=== PATIENT | female | born 1945 | race Caucasian/White ===

== ENCOUNTER 2020-12-16 16:51 | Outpatient (RCR) | payer MEDICARE, SELFPAY ==
[2020-12-16] MEDS: COVID-19 VACC, MRNA(PFIZER)/PF 30 MCG/0.3 ML SYRINGE IM (07:17)
[2021-01-06] MEDS: COVID-19 VACC, MRNA(PFIZER)/PF 30 MCG/0.3 ML SYRINGE IM (06:56)
== END 2021-03-17 23:59 ==
LOC: IMMUN 16:51
PROVIDERS: PCP Family Medicine; Referring Provider Family Medicine; Visit Provider Family Medicine
DX: Z23 Encounter for immunization (principal)
CPT/HCPCS: 0001A; 0002A; 91300

== ENCOUNTER 2021-06-01 09:00 | Outpatient (RCR) | payer MEDICARE, SELFPAY ==
--- NOTE | 2021-04-29 10:36 | HP.PTEVAL ---
Patient's Visit Information JASON LEVINE is a 75 year old F referred to Physical Therapy by Dr. Barney Manning DO with a diagnosis of CHRONIC LINA LOW BACK PAIN WITHOUT SCIATICA. Date of Evaluation: 04/29/21 Physical Therapist: Danyelle Weller PT, Cert MDT - Visit Plan Frequency: 2-3x /Week Duration: 4-6 Weeks Plan: CONSIDER AQUATIC THERAPY. POSTURE CORRECTION/STRENGTHENING, INSTRUCTION IN APPROPRIATE BODY MECHANICS AND ACTIVITY MODIFICATIONS. DLS STARTING WITH A NEUTRAL SPINE PROGRESSING ROM TOLERATED. LINA LE ROM, STRETCHING AND STRENGTHENING. HEP INSTRUCTION. - Subjective Work/Leisure: RETIRED. Disability: NO. Present symptoms: LOW BACK STIFFNESS, LINA HIP PAIN R > L, RIGHT LATERAL THIGH, RIGHT GROIN PAIN. LINA FOOT COLD FEELING. Present since: ABOUT A YEAR. Pain Scale: WORST 5/10, LEAST 0/10. Currently: 0-1/10. Commenced as a result of: NO APPARENT REASON. Symptoms at onset: R HIP PAIN. Worse: WORKING IN GARDEN, GETTING UP AND DOWN, WALKING, STANDING AFTER PROLONGED SITTING, PROLONGED STANDING. LYING ON RIGHT HIP. STIFFNESS IN BACK IN MORNING. Better: RECLINER FOR LESS THAN AN HOUR, STANDING STILL FOR A FEW MINUTES WHILE WALKING. THE DAY PROGRESSES. Disturbed sleep: NO. Previous history/Previous treatment: CHIROPRACTOR A FEW TIMES ABOUT 7 YEARS AGO. NO BACK OR HIP SURGERY OR INJECTIONS. NO PT. Coughing/sneezing/straining: NEGATIVE. Gait: TIME AND DISTANCE LIMITED. MY STRIDE DOESN'T SEEM NORMAL AT TIMES. PATIENT REPORTS SHE LIMPS ON HER RIGHT LE SOMETIMES. Difficulty initiating urinatin: NO. Accidents: NO. Unexplained weight loss: NO. Imaging: RECENT LOW BACK AND HIP X-RAYS IN [place] - PATIENT REPORTS SHE WAS TOLD SHE HAS OA AND THERE IS SOMETHING AT L2-3. PMH/Recent major surgery: HTN, HIGH CHOLESTEROL. PLOF (Prior Level of Function): USE TO WALK A MILE AND A HALF ABOUT 6 MONTHS AGO AND NOW JUST A HALF MILE TO ONE MILE AT THE MOST. OTHER: - Objective Sitting/Standing Posture: POOR. Lordosis: REDUCED. Lateral shift: NO. Relevant shift: N/A. Active Correction of posture: WORSE. Other Observations: INDEP GAIT INTO PT WITH GOOD CADANCE. INDEP TRANSFERS SIT TO STAND WITHOUT UE ASSIST. Motor deficit: LINA LE'S GROSSLY 5/5 WITH MMT'ING. Sensory deficit: LINA LE LIGHT TOUCH SENSATION INTACT AND SYMMETRICAL. ROM deficit: TIGHT LINA LE HS'S AND GASTROC SOLEUS COMPLEX'S. Reflexes: 2/3 LINA LE'S BUT IT WAS DIFFICULT TO GET PATIENT TO RELAX FOR TESTING ESPECIALLY THE LEFT ANKLE. Dural Signs: NEGATIVE LINA LE'S. Lumbar mvmt loss: flex - NIL - INCREASES BACK TIGHTNESS AT THE END OF THE AVAILABLE ROM. ext - MOD - INCREASES LBP. R SG - MOD - PRODUCES HIP GODINEZ. L SG - MOD - INCREASES RIGHT LBP. Core strength: POOR. Palpation: NO ACUTE TENDERNESS WITH PALPATION OF THE LINA LOW BACK AND HIP REGIONS. TREATMENT: NEUROMUSCULAR REEDUCATION - RETRAINING OF MVMT AND POSTURE FOR SITTING, LYING AND STANDING ACTIVITIES. - Goals Goal 1:: DECREASE C/O LOW BACK, LINA HIP AND LE SX'S. Goal Time Frame: 4-6 Weeks Goal 2:: IMPROVE SITTING, WALKING, TRAVELING AND HOMEMAKING FUNCTION Goal Time Frame: 4-6 Weeks Goal 3:: INSTRUCT IN PROPHYLAXIS Goal Time Frame: 4-6 Weeks - Anticipated Interventions Patient/Client Instruction: Educate patient on: Condition, Plan of Care, Risk Factors For the Purpose of:: To improve self management Therapeutic Exercise to Include: Strength training, Body mechanics, Postural training, Flexibilty training, Neuromotor development, In an aquatic setting, Dynamic Lumbar Stabilization For the Purpose of:: To decrease pain, To improve muscle performance and motor function, To increase tolerance to activity/condition/position, To improve ability of physical actions for home/community/work/leisure Cryotherapy (ice pack, ice massage): Yes Thermo therapy (hot pack): Yes Ultrasound (thermal/non thermal): Yes For the Purpose of:: To decrease pain, To improve nutrient delivery to tissue Thank you for the opportunity to evaluate your patient. For Medicare and Medicare HMO plans, please review the plan of care and approve it. It will need to be FAXED BACK to us at [phone] for Medicare purposes. For Medicare only, by signing this I certify the plan of care. Please let me know if there are questions or concerns regarding this plan of care. Physician Signature: Date:
--- NOTE | 2021-06-01 09:29 | HP.PTDCSUM ---
It has been my pleasure to treat JASON LEVINE referred by Dr. Barney Manning, , with the diagnosis of CHRONIC LINA LOW BACK PAIN WITHOUT SCIATICA for a total of 10 visit(s). Discharge Date: 06/01/21 Please see the following information for a summary of their discharge status. Subjective: PATIENT REPORTS SHE IS DOING GOOD. ONLY HAVING MILD RIGHT ANTERIOR HIP PAIN THAT COMES AND GOES NOW. GOING TO FOLLOW UP WITH DR. MANNING TUESDAY. PATIENT REPORTS SHE IS BACK TO DOING HER NORMAL ACTIVITIES. EASING BACK INTO HER NORMAL 1.5 MILE WALK. WALKED ABOUT .5 MILES TUESDAY AND DID HAVE MILD RIGHT GROIN PAIN. NO BACK OR HIP PAIN WALKING. GOING TO TALK TO DR. MANNING ABOUT INTERMITTENT RIGHT GROIN PAIN TUESDAY. LOW BACK Pain Intensity (Out of 10): 0 RIGHT HIP/THIGH Pain Intensity (Out of 10): 0 RIGHT LOWER LEG Pain Intensity (Out of 10): 0 R FOOT Pain Intensity (Out of 10): 0 % Improvement: 99 Objective/Function: PATIENT WAS SEEN TODAY FOR RE-ASSESSMENT OF PROGRESS TOWARD THE SET PT GOALS AND THE NEED FOR FURTHER PHYSICAL THERAPY VS READINESS FOR DISCHARGE. UPON EXAM TODAY: ALL PT GOALS HAVE BEEN MET AND PATIENT IS APPROPRIATE FOR DISCHARGE TO [facility]. PATIENT IS AGREEABLE AND PLANS TO FOLLOW UP WITH DR. MANNING TUESDAY ABOUT INTERMITTENT RIGHT GROIN PAIN. Lumbar mvmt loss: flex - NIL. ext - MOD. R SG - MOD. L SG - MOD. PATIENT DENIES PAIN WITH LUMBAR ROM TESTING ALL PLANES. RIGHT HIP ISO HIP ADDUCTION PROVOKES SOME RIGHT GROIN PAIN AND PATIENT REPORTS WALKING ALSO STILL PROVOKES SOME RIGHT GROIN PAIN. SUPINE TESTING OR RIGHT HIP FLEX, IR AND ER ALL PROVOKE MILD RIGHT GROIN PAIN AT THE END OF THE AVAILABLE ROM AND RIGHT HIP ROM IS ABOUT 20% MORE LIMITED THAN LEFT. Goal 1:: DECREASE C/O LOW BACK, LINA HIP AND LE SX'S. Goal Progress: Goal Met Goal 2:: IMPROVE SITTING, WALKING, TRAVELING AND HOMEMAKING FUNCTION Goal Progress: Goal Met Goal 3:: INSTRUCT IN PROPHYLAXIS Goal Progress: Goal Met Plan: D/C TO INDEP EX. PATIENT AGREEABLE. If there are questions or concerns regarding this patient's physical therapy, please feel free to call me at [phone]. Thank you for the referral of this patient. Sincerely, Danyelle Weller, PT, Cert MDT Balance/Gait/Functional tests - Balance/Special Test Scores Oswestry Low Back Score: 1
== END 2021-06-01 15:51 | disposition home or self-care (01) ==
LOC: PT 09:00
PROVIDERS: PCP Family Medicine; Referring Provider Family Medicine; Visit Provider Family Medicine
DX: M54.5 Low back pain (principal); G89.29 Other chronic pain
CPT/HCPCS: 97035; 97110; 97112; 97113; 97162; 97164; 97530

== ENCOUNTER → 2025-08-14 | Outpatient (CLI) | payer MEDICARE, SELFPAY ==
[2025-08-14 16:03] LABS: Hepatitis C Antibody Nonreactive (Nonreactive); Vitamin D,25 Hydroxy 61.1 ng/mL (30-100)
== END | disposition home or self-care (01) ==
LOC: POLAB3 14:38
PROVIDERS: PCP Family Medicine Geriatric Medicine; Visit Provider Family Medicine Geriatric Medicine
DX: I10 Essential (primary) hypertension (principal); E55.9 Vitamin D deficiency, unspecified
CPT/HCPCS: 36415; 82306; 84443; 86803